=== PATIENT | female | born 1990 | race African-American/Black ===

== ENCOUNTER 2017-01-15 07:24 | Inpatient (IN) | payer OTHER ==
[2017-01-15] VITALS (114 sets, daily range): BP systolic 87–145; BP diastolic 49–102; PULSE 68–112; RESP 16–20; TEMP 97.6–98.8; O2SAT 100
[~2017-01-15] VITALS: Ht 165.1 cm; Wt 112.9 kg
[~2017-01-15 07:24] MED LIST: PREN29TA PO
--- NOTE | 2017-01-15 08:14 | HHI.HP ---
HPI Chief Complaint Contraction pain Date Seen: Jan 15, 2017 Travel History International Travel<30 Days: No Contact w/Intl Traveler<30Days: No Known Affected Area: No History of Present Illness HPI Patient is 26-year-old black female at 38 weeks presents planning of increasing abdominal pain and pressure. 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 heart rate tracing is reactive and she is teena every 1-2 minutes , there is no bleeding or leakage of fluid Para: 0 : 1 History Social History Alcohol Use: No Tobacco Use: No Substance Abuse: No Allergies-Medications (Allergen,Severity, Reaction): Coded Allergies: No Known Allergies (Unverified , 06/30/16) Home Meds Reported Medications Vit-Iron Carbonyl ( Plus Iron 29-1 mg)1 Tab Tab1 Tab PO DAILY #30 TAB Ref 0 06/30/16 Review of Systems General / Constitutional: No: Fever, Weight Gain, Chills, Other Eyes: No: Diploplia, Blurred Vision, Visual changes, Pain, Photophobia HENT: No: Headaches, Vertigo, Lightheadedness Cardiovascular: No: Irregular Rhythm, Chest Pain or Discomfort, Palpitations, Tachycardia, Syncope, Varicosities, Edema, Cyanosis Respiratory: No: Cough, Short of Breath, Other Gastrointestinal: No: Nausea, Vomiting, Diarrhea Genitourinary: No: Decreased Urinary Output, Oliguria Musculoskeletal: No: Limited ROM, Weakness, Cramping, Edema, Pain Skin: No Rash, No Itching, No Dryness, No Lumps, No Change in Pigmentation, No Change in Nails, No Alopecia, No Lesions Neurologic: No: Weakness, Dizziness, Syncope, Focal Abnormalities, Coordination Problem, Headache, Slurred Speech, Seizures Psychiatric: No: Depression, Suicidal Ideations, Homicidal Ideation Endocrine: No: Heat Intolerance, Cold Intolerance, Polydipsia, Polyuria, Other Physical Exam Narrative GENERAL: Well-nourished, well-developed patient. SKIN: Warm and dry. HEAD: Normocephalic and atraumatic. EYES: No scleral icterus. No injection or drainage. ENT: No nasal drainage noted. Mucous membranes pink. Airway patent. NECK: Supple, trachea midline. No JVD. CARDIOVASCULAR: Regular rate and rhythm without murmurs, gallops, or rubs. RESPIRATORY: Breath sounds equal bilaterally. No accessory muscle use. BREASTS: Bilateral exam showed no masses , no retractions, no nipple discharge. ABDOMEN/GI: Abdomen soft, non-tender, bowel sounds present, no rebound, no guarding Gravid to [38-] weeks size Fundal Height: [38-] GENITOURINARY: External Genitalia: intact and normal in appearance BUS glands: [-] Cervix: [-] Dilatation: [2-3] Effacement: [-80] Station: [-1] Presentation: [-vtx] Membranes: [intact ] Uterine Contractions: [q 2 min-] FHT's: Category: [1-] Baseline: [133-] Reactive: [yes-] Variability: [mod-] Decels: [0-] EXTREMITIES: No cyanosis or edema. BACK: Nontender without obvious deformity. No CVA tenderness. NEUROLOGICAL: Awake and alert. Motor and sensory grossly within normal limits. Five out of 5 muscle strength in all muscle groups. Normal speech. Assessment/Plan Assessment and Plan Patient 26-year-old black female at 38 weeks gestation [address] by [address]. Godwin for care. She presents complaining of increasing vaginal and abdominal pain and pressure and increasing over the night. 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 There is no bleeding or leakage of fluid. Baby is active. The heart rate tracing is reactive and she is teena every 2 minutes approximately Impression is early labor at 38 weeks Plan is to have patient walk for an hour and recheck very likely admit at that point for labor management Rebel Iglesias II, MD Jan 15, 2017 08:13
[2017-01-15] MEDS ORDERED: OXYTOCIN 30 UNITS-500ML PREMIX 500 ML IV ONE ×2 (09:15→19:45)
[2017-01-15] MEDS ORDERED: SODIUM CHLORID 0.9% 500 ML INJ 500 ML IV PRN (09:15)
[2017-01-15] MEDS ORDERED: MINERAL OIL 10 ML VIAL TOPICAL PRN (09:15)
[2017-01-15] MEDS ORDERED: CITRIC ACID-SODIUM CITRATE LIQ 30 ML UDC PO SCH (09:15)
[2017-01-15] MEDS ORDERED: LIDOCAINE HCL 1% 50 ML VIAL I-DERMAL PRN (09:15)
[2017-01-15] MEDS ORDERED: LIDOCAINE HCL 1% 50 ML VIAL INFIL PRN (09:15)
[2017-01-15] MEDS ORDERED: SODIUM CHLOR 0.9% 1000 ML INJ 1,000 ML IV PRN (09:23)
[2017-01-15 09:49] LABS: BASOPHIL # 0.1 TH/MM3 (0-0.2); BASOPHIL % 0.6 % (0.0-2.0); EOSINOPHIL # 0.1 TH/MM3 (0-0.4); EOSINOPHIL % 0.9 % (0.0-4.0); HEMATOCRIT 36.4 % (35.0-46.0); HEMO FLAGS DIFF FINAL; LYMPH % 29.9 % (9.0-44.0); LYMPHOCYTE # 2.5 TH/MM3 (1.0-4.8); MEAN CELL VOLUME 85.2 FL (80.0-100.0); MONO % 9.8 % (0.0-8.0); NEUT % 58.8 % (16.0-70.0); PLATELET COUNT 283 TH/MM3 (150-450); RED BLOOD COUNT 4.27 MIL/MM3 (4.00-5.30); RED CELL DISTRIBUTION WIDTH 14.4 % (11.6-17.2); WHITE BLOOD COUNT 8.5 TH/MM3 (4.0-11.0)
[2017-01-15 09:50] LABS: BACTERIA, URINE RARE /hpf; BLOOD, URINE NEG (NEG); CALCIUM OXALATE CRYSTALS,URINE OCC /hpf; COMMENT (UR) CULT NOT INDICATED; CULTURE IF INDICATED CULT NOT INDICATED; GLUCOSE,URINE NEG (NEG); KETONE, URINE NEG (NEG); MUCUS URINE FEW /lpf (OCC); NITRITE,URINE NEG (NEG); SQUAMOUS EPITHELIAL CELL URINE 1 /hpf (0-5); URINE COLOR YELLOW (YELLW/STRAW)
[2017-01-15] MEDS ORDERED: LACTATED RINGER'S 1000 ML INJ 1,000 ML IV PRN (10:00)
[2017-01-15] MEDS ORDERED: LACTATED RINGER'S 1000 ML INJ 1,000 ML IV SCH (10:00)
[2017-01-15] MEDS ORDERED: OXYTOCIN 30 UNITS/NS 500ML PREMIX IV SCH (10:45)
[2017-01-15] MEDS ORDERED: fentaNYL 2MCG-BUPIV 0.125% INJ 100 ML ONE (10:50)
[2017-01-15] MEDS ORDERED: ePHEDrine/NS 25 MG/5 ML SYR ONE (11:42)
[2017-01-15] MEDS ORDERED: LIDOCAINE HCL 1% PF 5 ML AMPULE ONE (12:11)
[2017-01-15] MEDS ORDERED: DO NOT ADMINISTER ANTICOAGULANTS PRN (13:15)
[2017-01-15] MEDS ORDERED: fentaNYL 2MCG-BUPIV 0.125% 100 ML EPIDURAL SCH (13:15)
[2017-01-15] MEDS ORDERED: NO SYSTEM NARCOTICS PRN (13:15)
[2017-01-15] MEDS ORDERED: ePHEDrine/NS 25 MG/5 ML SYR IV PRN (13:15)
[2017-01-15] MEDS ORDERED: MEASLES, MUMPS, RUBELLA VACCINE 0.5 ML VIAL SQ ONE (16:00)
[2017-01-15] MEDS ORDERED: DIPHTH/TETANUS/ACEL PERTUSSIS (BOOSTER) 0.5 ML VIAL/PFS IM ONE (16:00)
--- NOTE | 2017-01-15 19:37 | PD.OB.DELI ---
Delivery Date: Jan 15, 2017 Anesthesia: Epidural Episiotomy: None Vaginal Delivery: Normal Presentation: Occiput anterior Nuchal Cord: None Delayed cord clamping (45 sec): Yes Shoulder Dystocia: Suprapubic pressure given, Connie maneuver done (mild shoulder dystocia resolved after 10-15 seconds with connie and suprapubic pressure) : Female, Single One Minute : 9 Five Minute : 9 Weight: 7-9 Placenta: Spontaneous delivery, Intact, 3 vessel cord Laceration: No lacerations Eben Chandler MD Jan 15, 2017 19:37
[2017-01-15] MEDS ORDERED: ALUMINUM/MAGNESIUM/SIMETH 30 ML CUP PO PRN (19:45)
[2017-01-15] MEDS ORDERED: BENZOCAINE 20% TOPICAL SPRAY 60 ML CAN TOPICAL PRN (19:45)
[2017-01-15] MEDS ORDERED: SODIUM CHLORIDE 0.9% FLUSH 10 ML FLUSH IV FLUSH PRN (19:45)
[2017-01-15] MEDS ORDERED: oxyCODONE/ACETAMINOPHEN 5 MG/325 MG TAB PO PRN (19:45)
[2017-01-15] MEDS ORDERED: OXYTOCIN 10 UNIT/ML AMP XX PRN (19:45)
[2017-01-15] MEDS ORDERED: WITCH HAZEL 50%/GLYCERIN 12.5% 40 PAD JAR TOPICAL PRN (19:45)
[2017-01-15] MEDS ORDERED: DOCUSATE SODIUM 50 MG/SENNA 8.6 MG TAB PO PRN (19:45)
[2017-01-15] MEDS ORDERED: ZOLPIDEM TARTRATE 5 MG TAB PO PRN (19:45)
[2017-01-15] MEDS ORDERED: ONDANSETRON ODT 4 MG TAB PO PRN (19:45)
[2017-01-15] MEDS ORDERED: SODIUM CHLORIDE 0.9% FLUSH 10 ML FLUSH IV FLUSH SCH (21:00)
[2017-01-16] MEDS: IBUPROFEN 600 MG TAB PO PRN ×2 (02:05→11:29)
--- NOTE | 2017-01-16 07:49 | HHI.OB ---
Subjective Post Day: 1 Remarks Pt doing well Objective Vitals/I&O Vital Signs Date Time Temp Pulse Resp B/P Pulse Ox O2 Delivery O2 Flow Rate FiO2 01/15/17 21:31 79 128/70 01/15/17 21:01 94 135/71 01/15/17 20:31 104 132/51 01/15/17 20:28 101 134/78 01/15/17 20:16 102 01/15/17 20:01 106 142/67 01/15/17 19:45 90 01/15/17 19:30 104 136/77 01/15/17 19:30 98.4 16 01/15/17 19:16 105 144/75 01/15/17 18:45 100 01/15/17 18:45 97 134/80 01/15/17 18:35 106 01/15/17 18:30 100 01/15/17 18:30 103 01/15/17 18:30 101 126/74 01/15/17 18:25 105 01/15/17 18:20 107 01/15/17 18:15 98 01/15/17 18:15 98.8 01/15/17 18:15 99 128/78 01/15/17 18:05 100 01/15/17 18:01 101 117/64 01/15/17 18:00 18 01/15/17 17:55 101 01/15/17 17:50 103 01/15/17 17:48 101 117/60 01/15/17 17:47 122/90 01/15/17 17:45 106 01/15/17 17:40 99 01/15/17 17:35 98 01/15/17 17:30 100 01/15/17 17:30 101 110/52 01/15/17 17:25 96 01/15/17 17:20 96 01/15/17 17:16 99 123/61 01/15/17 17:15 100 01/15/17 17:15 98 01/15/17 17:10 102 01/15/17 17:05 98 01/15/17 17:00 96 18 145/88 01/15/17 17:00 92 01/15/17 16:58 97.6 01/15/17 16:55 87 01/15/17 16:50 89 01/15/17 16:46 79 133/76 01/15/17 16:45 90 01/15/17 16:31 73 134/71 01/15/17 16:30 89 01/15/17 16:25 100 01/15/17 15:55 69 01/15/17 15:50 68 01/15/17 15:46 73 144/70 01/15/17 15:45 78 01/15/17 15:40 95 01/15/17 15:35 79 01/15/17 15:31 94 120/72 01/15/17 15:30 88 01/15/17 15:25 100 01/15/17 15:18 97.7 16 01/15/17 15:16 90 117/57 01/15/17 15:15 100 01/15/17 15:15 89 01/15/17 15:10 96 01/15/17 15:05 93 01/15/17 15:04 92 129/66 01/15/17 15:01 91 142/97 01/15/17 15:00 93 01/15/17 14:55 90 01/15/17 14:50 78 01/15/17 14:47 18 01/15/17 14:45 72 01/15/17 14:45 90 137/76 01/15/17 14:32 20 01/15/17 14:31 69 131/66 01/15/17 14:30 76 01/15/17 14:25 100 01/15/17 14:16 85 130/66 01/15/17 14:15 84 01/15/17 14:12 18 01/15/17 14:10 94 01/15/17 14:05 96 01/15/17 14:01 91 107/56 01/15/17 14:00 81 01/15/17 13:25 100 01/15/17 13:17 83 105/55 01/15/17 13:16 87 97/49 01/15/17 13:15 97.6 01/15/17 13:15 86 01/15/17 13:14 16 01/15/17 13:10 87 01/15/17 13:05 83 01/15/17 13:01 79 115/61 01/15/17 13:00 105 01/15/17 12:56 68 113/54 01/15/17 12:55 75 01/15/17 12:51 75 122/61 01/15/17 12:50 86 01/15/17 12:47 77 122/63 01/15/17 12:46 71 107/49 01/15/17 12:45 78 01/15/17 12:42 79 01/15/17 12:41 111/60 01/15/17 12:40 70 111/60 01/15/17 12:40 77 01/15/17 12:35 87 01/15/17 12:35 100 120/61 01/15/17 12:31 78 113/52 01/15/17 12:30 87 87/70 01/15/17 12:30 82 01/15/17 12:25 91 01/15/17 12:25 83 137/75 01/15/17 12:21 83 118/54 01/15/17 12:20 86 01/15/17 12:16 79 131/58 01/15/17 12:15 86 01/15/17 11:50 97 01/15/17 11:50 100 01/15/17 11:50 112 143/102 01/15/17 11:47 20 01/15/17 11:46 79 140/64 01/15/17 11:45 81 01/15/17 11:40 87 01/15/17 11:30 87 01/15/17 11:25 85 01/15/17 11:20 85 01/15/17 11:15 97 01/15/17 10:59 20 01/15/17 10:59 84 137/79 01/15/17 10:14 98.3 01/15/17 10:08 89 138/71 01/15/17 10:07 20 01/15/17 08:55 80 01/15/17 08:50 78 Objective Remarks GENERAL: Well-nourished, well-developed patient. CARDIOVASCULAR: Regular rate and rhythm without murmurs, gallops, or rubs. RESPIRATORY: Breath sounds equal bilaterally. No accessory muscle use. ABDOMEN/GI: Abdomen soft, non-tender. Fundus: Firm, non-tender at umbilicus. GENITOURINARY: Light to moderate bleeding. EXTREMITIES: No cyanosis or edema, non-tender, without signs of DVT. Medications and IVs Current Medications Medications (Trade) Dose Ordered Sig/Florencia Route Start Time Stop Time Status Last Admin (Pitocin 30 Units-NS 500 ml Premix) 500 ml @ 0 mls/hr TITRATE IV 01/15/17 10:45 01/15/17 14:44 Miscellaneous Information No systemic narcotics to be given except... UNSCH PRN .XX 01/15/17 13:15 01/16/17 13:14 Miscellaneous Information DO NOT ADMINISTER ANY ANTICOAGUL... UNSCH PRN .XX 01/15/17 13:15 01/16/17 13:14 (NS Flush) 2 ml BID IV FLUSH 01/15/17 21:00 (NS Flush) 2 ml UNSCH PRN IV FLUSH 01/15/17 19:45 (Tylenol) 650 mg Q4H PRN PO 01/15/17 19:45 (Motrin) 600 mg Q6H PRN PO 01/15/17 19:45 01/16/17 02:05 (Percocet 5-325 Mg) 1 tab Q4H PRN PO 01/15/17 19:45 01/16/17 02:05 (Americaine 20% Top Spr) 1 spray Q4H PRN TOPICAL 01/15/17 19:45 (Tucks Pads) 1 applic QID PRN TOPICAL 01/15/17 19:45 (Shirley-Colace) 2 tab Q12H PRN PO 01/15/17 19:45 (Ambien) 5 mg HS PRN PO 01/15/17 19:45 (Mag-Al Plus Susp Liq) 15 ml Q8H PRN PO 01/15/17 19:45 (Zofran Odt) 4 mg Q6H PRN PO 01/15/17 19:45 Assessment/Plan Assessment and Plan Patient 26-year-old black female at 38 weeks gestation [address] Plummer for care. She presents complaining of increasing vaginal and abdominal pain and pressure and increasing over the night. 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 There is no bleeding or leakage of fluid. Baby is active. The heart rate tracing is reactive and she is teena every 2 minutes approximately Impression is early labor at 38 weeks Plan is to have patient walk for an hour and recheck very likely admit at that point for labor management Discharge Planning PPD # 1 s/p doing well, anticipate d/c tomorrow Lula Plummer MD Jan 16, 2017 07:49
[2017-01-16 08:15] VITALS: BP 117/75; PULSE 96; RESP 16; TEMP 97.6
[2017-01-16] MEDS: ACETAMINOPHEN 325 MG TAB PO PRN (11:29)
[2017-01-16 20:10] VITALS: BP 142/70; PULSE 74; RESP 18; TEMP 98.1
[2017-01-17 08:00] VITALS: BP 121/78; PULSE 80; RESP 18; TEMP 98.1
[2017-01-17] MEDS: ACETAMINOPHEN 325 MG TAB PO PRN (09:44)
--- NOTE | 2017-01-17 17:05 | HHI.DCPOC ---
Discharge Care Plan Your Health Problems Are: Vaginal delivery Report Symptoms to Your Doctor -Temperature above 100.5 degrees -Redness, of incision or excessive or foul smelling drainage -Unusual pain or calf pain -Increased vaginal bleeding -Painful or difficulty urinating -Feelings of extreme sadness or anxiety after 2 weeks Goals to Promote Your Health * To prevent worsening of your condition and complications * To maintain your health at the optimal level Directions to Meet Your Goals Take your medications as prescribed Follow your dietary instruction Follow activity as directed Ensure plenty of rest for recovery Drink fluids for hydration Keep your appointments as scheduled Take your immunizations and boosters as scheduled If your symptoms worsen call your PCP, if no PCP go to Urgent Care Center or Emergency Room Smoking is Dangerous to Your Health. Avoid second hand smoke Call the 24-hour crisis hotline for domestic abuse at Lula Plummer MD Jan 17, 2017 17:05
--- NOTE | 2017-01-17 17:07 | HHI.DS ---
Admission Date Jan 15, 2017 at 09:07 Discharge Date: Jan 17, 2017 Admitting Diagnosis labor at term Diagnosis: Delivery Date: Jan 15, 2017 Vaginal Delivery: Normal : Female, Single Brief History Patient is 26-year-old black female at 38 weeks presents planning of increasing abdominal pain and pressure. 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 heart rate tracing is reactive and she is teena every 1-2 minutes , there is no bleeding or leakage of fluid Hospital Course uncomplicated vaginal delivery and post course Pt Condition on Discharge: Good Discharge Disposition: Discharge Home Discharge Instructions Diet Instructions: As Tolerated, No Restrictions Activities You Can Perform: Pelvic Rest Activities to Avoid: Sexual Activity Lula Plummer MD Jan 17, 2017 17:07
== END 2017-01-17 18:11 | disposition home or self-care (01) | DRG 775 ==
LOC: HOBED 07:24 → H2EA 09:07 → H1EA 22:21
PROVIDERS: ADMIT Obstetrics & Gynecology; ATTEND Obstetrics & Gynecology
PROC: 10E0XZZ Delivery of Products of Conception, External Approach (ICD-10-PCS; principal; 2017-01-15)
PROC: 3E0R3CZ (ICD-10-PCS; 2017-01-15)
PROC: 00HU33Z Insertion of Infusion Device into Spinal Canal, Percutaneous Approach (ICD-10-PCS; 2017-01-15)
DX: O66.0 Obstructed labor due to shoulder dystocia (principal); Z37.0 Single live birth; Z3A.38 38 weeks gestation of pregnancy
CPT/HCPCS: 81001; 85025; 86900; 86901; 99285; J2590; J7120